=== PATIENT | male | born 1990 | race Caucasian/White ===

== ENCOUNTER 2019-12-24 12:28 | Emergency (ER) | payer MEDICAID, OTHER ==
[~2019-12-24] VITALS: Ht 193 cm; Wt 172.4 kg
[2019-12-24] MEDS ORDERED: IBUPROFEN 800 MG TAB PO ONE (14:15)
[2019-12-24] MEDS ORDERED: methylPREDNISolone SOD SUCC 125 MG/2 ML VL IM ONE (14:15)
[2019-12-24 15:55] VITALS: BP 124/73
== END 2019-12-24 15:48 | disposition home or self-care (01) ==
LOC: ER 12:28
DX: R07.81 Pleurodynia (principal); I10 Essential (primary) hypertension
CPT/HCPCS: 71101; 93005; 96372; 99283; J2930

== ENCOUNTER 2020-09-26 01:41 | Emergency (ER) | payer MEDICAID ==
[~2020-09-26] VITALS: Ht 193 cm; Wt 204.1 kg
[2020-09-26 01:45] VITALS: BP 140/82
[2020-09-26] MEDS ORDERED: HYDROcodone-ACET 10/325MG TAB PO ONE (04:00)
[2020-09-26] MEDS ORDERED: ONDANSETRON ODT 4 MG TAB PO ONE (04:00)
== END 2020-09-26 04:59 | disposition home or self-care (01) ==
LOC: EDBD 01:41 → ER 01:41
DX: S76.912A Strain of unspecified muscles, fascia and tendons at thigh level, left thigh, initial encounter (principal); I10 Essential (primary) hypertension; W22.8XXA Striking against or struck by other objects, initial encounter; Y93.89 Activity, other specified; Y92.89 Other specified places as the place of occurrence of the external cause; Y99.8 Other external cause status
CPT/HCPCS: 99283; Q0162